=== PATIENT | female | born 1990 | race African-American/Black ===

== ENCOUNTER 2016-04-19 13:30 | Outpatient (RCR) | payer OTHER ==
[~2016-04-19 13:30] MED LIST: ACET50TA PO; CLINDAMYCIN PO; DOCU10ELUD PO; IBUP600T26 PO; IBUP800T23 PO; MOM30SS PO; NUPE1OIN2 TOP; TYLE325T5 PO; VALT500T PO; VITAPRTA PO; ZOFRAN PO
== END 2016-04-26 ==
LOC: M PT 13:30
PROVIDERS: ATTEND Family Medicine
DX: Z51.89 Encounter for other specified aftercare (principal); M54.9 Dorsalgia, unspecified

== ENCOUNTER → 2016-05-06 | Outpatient (REF) | payer OTHER, MEDICAID | LOC: M SFHCLERA 12:11 | PROVIDERS: ATTEND Family Medicine | DX: Z11.8 Encounter for screening for other infectious and parasitic diseases (principal); E66.9 Obesity, unspecified ==

== ENCOUNTER → 2016-05-09 | Outpatient (CLI) | payer OTHER | LOC: M HL 10:18 | PROVIDERS: ATTEND Family Medicine | DX: E66.9 Obesity, unspecified (principal) ==

== ENCOUNTER → 2016-05-24 | Outpatient (CLI) | payer OTHER, MEDICAID ==
--- NOTE | 2016-05-25 08:27 | REP ---
MR LUMBAR SPINE WITHOUT CONTRAST: HISTORY: Back pain. There is no disc bulge or herniation at the L1-2 through L3-4 and L5-S1 levels. The nerves exit the neural foramina without compression. A diffuse disc bulge is present at the L4-5 level. There is minimal compression of the thecal sac. The L4 nerves exit the neural foramina without compression. The conus medullaris is normal in appearance terminating at the level of the L1 vertebral body. Normal signal intensity is present in the lumbar intervertebral discs and vertebral bodies. IMPRESSION: Diffuse disc bulge at the L4-5 level with minimal thecal sac compression. Signed by Hari Ann MD 05/25/2016 08:41 A
== END ==
LOC: M RAD 14:13
PROVIDERS: ATTEND Physician Assistant
DX: S39.012A Strain of muscle, fascia and tendon of lower back, initial encounter (principal); X58.XXXA Exposure to other specified factors, initial encounter; Y92.89 Other specified places as the place of occurrence of the external cause; Y93.89 Activity, other specified; Y99.8 Other external cause status; M51.26 Other intervertebral disc displacement, lumbar region

== ENCOUNTER 2016-09-24 15:17 | Emergency (ER) | payer OTHER, MEDICAID ==
[~2016-09-24] VITALS: Ht 167.6 cm; Wt 100.4 kg
[~2016-09-24 15:17] MED LIST changes: +IBUP1TAB7 PO; -IBUP800T23 PO
[2016-09-24 15:18] VITALS: BP 157/84
[2016-09-24] MEDS ORDERED: CYCL5TAB PO (15:30)
[2016-09-24] MEDS ORDERED: NAPR500T PO (15:59)
[2016-09-24] MEDS ORDERED: ULTR50TA8 PO (15:59)
[2016-09-24] MEDS ORDERED: KETOROLAC 60 MG/2 ML VIAL (J1885) IM ONE (16:00)
== END 2016-09-24 16:07 | disposition home or self-care (01) ==
LOC: M ED 15:17
DX: M54.2 Cervicalgia (principal); G89.29 Other chronic pain; F17.210 Nicotine dependence, cigarettes, uncomplicated
CPT/HCPCS: 96372; 99282; J1885

== ENCOUNTER → 2016-12-13 | Outpatient (REF) | payer OTHER, MEDICAID ==
[~2016-12-13] MED LIST changes: +CYCL5TAB PO; +NAPR500T PO; +ULTR50TA8 PO
[2016-12-14 12:20] LABS: CONTROL LINE HCG INT CTR LINE PRESENT
[2016-12-14 12:51] LABS: ALBUMIN 3.7 GM/DL (3.2-5.2); ALBUMIN/GLOBULIN RATIO 1.03 (1.00-1.93); ALKALINE PHOSPHATASE 69 U/L (45-117); ALT/SGPT 28 U/L (12-78); ANION GAP 3 MEQ/L (8-16); AST/SGOT 8 U/L (15-37); BILIRUBIN,TOTAL 0.3 MG/DL (0.2-1.0); BLOOD UREA NITROGEN 10 MG/DL (7-18); CALCIUM LEVEL 9.1 MG/DL (8.5-10.1); CARBON DIOXIDE LEVEL 33 MEQ/L (21-32); CHLORIDE LEVEL 107 MEQ/L (98-107); CHOLESTEROL LEVEL 151 MG/DL (<200); CREATININE FOR GFR 0.62 MG/DL (0.55-1.02); GLOMERULAR FILTRATION RATE > 60.0 (>60); GLUCOSE, FASTING 78 MG/DL (70-105); SODIUM LEVEL 143 MEQ/L (136-145); TOTAL PROTEIN 7.3 GM/DL (6.4-8.2); TRIGLYCERIDES LEVEL 79 MG/DL (<150)
== END ==
LOC: M SFHCLERA 15:53
PROVIDERS: ATTEND Family Medicine
DX: R63.5 Abnormal weight gain (principal); Z11.3 Encounter for screening for infections with a predominantly sexual mode of transmission; E66.09 Other obesity due to excess calories; N91.2 Amenorrhea, unspecified

== ENCOUNTER 2017-01-04 20:02 | Emergency (ER) | payer OTHER, MEDICAID ==
[~2017-01-04] VITALS: Ht 167.6 cm; Wt 105.5 kg
[2017-01-04 21:18] LABS: BASO % 0.4 % (0.0-1.0); EOS # 0.1 10^3/uL (0.0-0.50); EOS % 1.1 % (0.0-3.0); IMMATURE GRANULOCYTE % 0.2 % (0-0); LYMPH % 24.1 % (24.0-44.0); MEAN CORPUSCULAR HEMOGLOBIN 31.4 pg (27.0-33.0); MEAN CORPUSCULAR HGB CONC 33.5 g/dl (32.0-36.5); MEAN CORPUSCULAR VOLUME 93.8 fl (80.0-96.0); MONO # 0.6 10^3/uL (0.0-0.8); MONO % 7.5 % (0.0-5.0); NEUTROPHILS # 5.6 10^3/uL (1.8-7.7); NEUTROPHILS % 66.7 % (36.0-66.0); PLATELET COUNT, AUTOMATED 268 10^3/uL (150-450); RED CELL DISTRIBUTION WIDTH 12.6 % (11.5-14.5); WHITE BLOOD COUNT 8.4 10^3/uL (4.0-10.0)
[2017-01-04] MEDS ORDERED: NS 1,000 ML IV SCH (21:24)
[2017-01-04 21:39] LABS: CONTROL LINE HCG INT CTR LINE PRESENT
[2017-01-04 21:59] LABS: ANION GAP 7 MEQ/L (8-16); BLOOD UREA NITROGEN 8 MG/DL (7-18); CALCIUM LEVEL 8.6 MG/DL (8.5-10.1); CARBON DIOXIDE LEVEL 25 MEQ/L (21-32); CHLORIDE LEVEL 108 MEQ/L (98-107); CREATININE FOR GFR 0.49 MG/DL (0.55-1.02); GLOMERULAR FILTRATION RATE > 60.0 (>60); GLUCOSE, FASTING 83 MG/DL (70-105); SODIUM LEVEL 140 MEQ/L (136-145)
[2017-01-04 22:08] LABS: POTASSIUM SERUM 4.7 MEQ/L (3.5-5.1)
[2017-01-04 22:52] VITALS: BP 141/76
--- NOTE | 2017-01-05 14:56 | REP ---
Clinical: Syncope . Comparison: None . Technique: PA and lateral. Findings: The mediastinum and cardiac silhouette are normal. The lung altamirano are clear and without acute consolidation, effusion, or pneumothorax. The skeletal structures are intact and normal. Impression: 1. No acute cardiopulmonary process. Signed by Flakito Yañez MD 01/05/2017 02:47 P
--- NOTE | 2017-01-06 07:35 | ECGEPIP ---
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
== END 2017-01-04 23:32 | disposition home or self-care (01) ==
LOC: M ED 20:02
DX: R55 Syncope and collapse (principal); Z72.0 Tobacco use

== ENCOUNTER → 2017-01-09 | Outpatient (CLI) | payer OTHER, MEDICAID ==
--- NOTE | 2017-01-10 01:18 | REP ---
Clinical: Pain . Technique: AP, lateral, bilateral oblique views right ankle . Findings: Mild swelling is suggested. No acute fracture or dislocation. Skeletal structures and joint spaces are intact and normal. Ankle mortise appears stable. No subcutaneous emphysema or radiodense foreign body. Impression: Mild swelling. No acute fracture or dislocation. Signed by Flakito Yañez MD 01/10/2017 01:11 A
== END ==
LOC: M RAD 18:07
PROVIDERS: ATTEND Physician Assistant Medical
DX: M25.571 Pain in right ankle and joints of right foot (principal)

== ENCOUNTER 2017-08-27 18:22 | Emergency (ER) | payer OTHER, MEDICAID ==
[2017-08-27 19:08] LABS: BASO % 0.3 % (0.0-1.0); EOS # 0.1 10^3/uL (0.0-0.50); EOS % 1.7 % (0.0-3.0); HEMATOCRIT 37.2 % (36.0-47.0); HEMOGLOBIN 12.4 g/dl (12.0-15.5); IMMATURE GRANULOCYTE % 0.2 % (0-3.0); LYMPH # 2.3 10^3/uL (1.5-6.5); LYMPH % 34.9 % (24.0-44.0); MEAN CORPUSCULAR HEMOGLOBIN 30.7 pg (27.0-33.0); MEAN CORPUSCULAR HGB CONC 33.3 g/dl (32.0-36.5); MEAN CORPUSCULAR VOLUME 92.1 fl (80.0-96.0); MONO # 0.4 10^3/uL (0.0-0.8); MONO % 6.8 % (0.0-5.0); NEUTROPHILS # 3.7 10^3/uL (1.8-7.7); NEUTROPHILS % 56.1 % (36.0-66.0); PLATELET COUNT, AUTOMATED 272 10^3/uL (150-450); RED BLOOD COUNT 4.04 10^6/uL (4.00-5.40); RED CELL DISTRIBUTION WIDTH 12.3 % (11.5-14.5); WHITE BLOOD COUNT 6.5 10^3/uL (4.0-10.0)
[2017-08-27 19:21] LABS: CONTROL LINE HCG INT CTR LINE PRESENT; HCG, SERUM QUALITATIVE NEGATIVE (NEGATIVE)
== END 2017-08-27 20:07 | disposition home or self-care (01) ==
LOC: M ED 18:22
DX: N92.0 Excessive and frequent menstruation with regular cycle (principal); Z87.42 Personal history of other diseases of the female genital tract; F17.210 Nicotine dependence, cigarettes, uncomplicated; Z91.010 Allergy to peanuts
CPT/HCPCS: 84703

== ENCOUNTER → 2017-12-15 | Outpatient (REF) | payer OTHER, MEDICAID ==
[2017-12-15 15:35] LABS: CHLAMYDIA DNA AMPLIFICATION NEGATIVE (NEGATIVE); GC DNA AMPLIFICATION NEGATIVE (NEGATIVE)
== END ==
LOC: M LAB REF 13:45
DX: Z11.3 Encounter for screening for infections with a predominantly sexual mode of transmission (principal)

== ENCOUNTER → 2017-12-15 | Outpatient (REF) | payer MEDICAID, OTHER | LOC: M LAB REF 14:07 | DX: Z12.4 Encounter for screening for malignant neoplasm of cervix (principal) | CPT/HCPCS: 88142 ==

== ENCOUNTER 2017-12-16 09:00 | Emergency (ER) | payer MEDICAID, OTHER ==
[2017-12-16] MEDS: KETOROLAC TROMETHAMINE 10 MG TAB PO ×2 (09:26)
[2017-12-16] MEDS: BACLOFEN 10 MG TAB PO ×2 (09:26)
== END 2017-12-16 10:17 | disposition home or self-care (01) ==
LOC: M ED 09:00
DX: S16.1XXA Strain of muscle, fascia and tendon at neck level, initial encounter (principal); X58.XXXA Exposure to other specified factors, initial encounter; Y92.89 Other specified places as the place of occurrence of the external cause; Z91.010 Allergy to peanuts; F17.210 Nicotine dependence, cigarettes, uncomplicated
CPT/HCPCS: 99282

== ENCOUNTER → 2017-12-18 | Outpatient (CLI) | payer MEDICAID, OTHER | LOC: M RAD 12:02 | DX: D27.1 Benign neoplasm of left ovary (principal) | CPT/HCPCS: 76856 ==

== ENCOUNTER → 2018-06-21 | Outpatient (CLI) | payer OTHER, MEDICAID ==
[~2018-06-21] MED LIST changes: +BACL10TA2 PO; +DICL75TA PO; +NAPR-50 PO; -NAPR500T PO; +NEXP1IMP SC
[2018-06-21 15:17] LABS: CHLAMYDIA DNA AMPLIFICATION POSITIVE (NEGATIVE); GC DNA AMPLIFICATION NEGATIVE (NEGATIVE)
[2018-06-22 10:18] LABS: HEPATITIS A ANTIBODY IGM NEGATIVE (NEGATIVE); HEPATITIS B CORE ANTIBODY IGM NEGATIVE (NEGATIVE); HEPATITIS B SURFACE ANTIGEN NEGATIVE (NEGATIVE); HEPATITIS C VIRUS ABY INDEX 0.1 INDEX (<0.8); HIV 1&2 SCREEN CENTAUR NEGATIVE (NEGATIVE)
== END ==
LOC: M SMT 10:02
PROVIDERS: ATTEND Advanced Practice Midwife
DX: Z11.3 Encounter for screening for infections with a predominantly sexual mode of transmission (principal)

== ENCOUNTER 2018-06-25 16:11 | Emergency (ER) | payer MEDICAID, OTHER ==
[~2018-06-25] VITALS: Ht 167.6 cm; Wt 107.9 kg
[~2018-06-25 16:11] MED LIST changes: -ACET50TA PO; -DOCU10ELUD PO; +DOCU5LIQ PO; +MAPA500T17 PO; -NAPR-50 PO; +NAPR-837 PO; -NEXP1IMP SC
[2018-06-25] MEDS ORDERED: NEXP1IMP SC (16:23)
[2018-06-25 19:10] LABS: BASO % 0.6 % (0.0-1.0); EOS # 0.1 10^3/uL (0.0-0.50); EOS % 1.5 % (0.0-3.0); HEMATOCRIT 41.2 % (36.0-47.0); HEMOGLOBIN 13.5 g/dl (12.0-15.5); LYMPH # 2.9 10^3/uL (1.5-6.5); LYMPH % 40.7 % (24.0-44.0); MEAN CORPUSCULAR HEMOGLOBIN 30.5 pg (27.0-33.0); MEAN CORPUSCULAR HGB CONC 32.8 g/dl (32.0-36.5); MONO # 0.5 10^3/uL (0.0-0.8); MONO % 6.7 % (0.0-5.0); NEUTROPHILS # 3.6 10^3/uL (1.8-7.7); NEUTROPHILS % 50.2 % (36.0-66.0); PLATELET COUNT, AUTOMATED 293 10^3/uL (150-450); RED BLOOD COUNT 4.43 10^6/uL (4.00-5.40); WHITE BLOOD COUNT 7.2 10^3/uL (4.0-10.0)
[2018-06-25 19:31] LABS: BLOOD UREA NITROGEN 10 MG/DL (7-18); CALCIUM LEVEL 8.9 MG/DL (8.5-10.1); CARBON DIOXIDE LEVEL 28 MEQ/L (21-32); CHLORIDE LEVEL 106 MEQ/L (98-107); CREATININE FOR GFR 0.62 MG/DL (0.55-1.30); GLOMERULAR FILTRATION RATE > 60.0 (>60); GLUCOSE, FASTING 73 MG/DL (70-100); POTASSIUM SERUM 3.9 MEQ/L (3.5-5.1); SODIUM LEVEL 139 MEQ/L (136-145)
--- NOTE | 2018-06-25 20:12 | REP ---
Clinical: Right pelvic pain . Technique: Transabdominal pelvic ultrasound followed by transvaginal examination for better evaluation of the endometrium and adnexa with color Doppler evaluation of the ovaries. Findings: Bladder is unremarkable and measures 7.2 x 4.0 x 4.7 cm . Normal anteverted uterus measures 8.0 x 4.1 x 4.8 cm . The endometrial complex measures 7.1 mm thickness. No discrete uterine or endometrial abnormalities are appreciated. Bilateral ovaries are normal in appearance and vascularity without evidence for torsion. Right ovary measures 4.5 x 2.1 x 3.4 cm ; R I = 0.54 . Left ovary measures 4.0 x 2.1 x 2.7 cm ; R I = 0.68 . Moderate amount of free fluid is nonspecific and likely physiologic . Impression: 1. Essentially normal pelvic ultrasound Electronically Signed by Flakito Yañez MD 06/25/2018 08:03 P
[2018-06-25 20:23] VITALS: BP 124/83
== END 2018-06-25 20:43 | disposition home or self-care (01) ==
LOC: M ED 16:11
DX: R10.2 Pelvic and perineal pain (principal); Z79.3 Long term (current) use of hormonal contraceptives; Z72.0 Tobacco use; Z91.010 Allergy to peanuts

== ENCOUNTER → 2018-06-30 | Outpatient (REF) | payer OTHER ==
[~2018-06-30] MED LIST changes: +NEXP1IMP SC
[2018-06-30 16:01] LABS: INFLUENZA A AMPLIFICATION NEGATIVE (NEGATIVE); INFLUENZA B AMPLIFICATION NEGATIVE (NEGATIVE)
== END ==
LOC: M LAB REF 09:27
PROVIDERS: ATTEND Physician Assistant
DX: J11.1 Influenza due to unidentified influenza virus with other respiratory manifestations (principal)

== ENCOUNTER → 2018-07-20 | Outpatient (REF) | payer OTHER ==
[2018-07-20 16:16] LABS: CHLAMYDIA DNA AMPLIFICATION NEGATIVE (NEGATIVE); GC DNA AMPLIFICATION NEGATIVE (NEGATIVE)
== END ==
LOC: M LAB REF 13:22
PROVIDERS: ATTEND Advanced Practice Midwife
DX: Z11.3 Encounter for screening for infections with a predominantly sexual mode of transmission (principal)

== ENCOUNTER → 2019-03-13 | Outpatient (CLI) | payer OTHER ==
[2019-03-13 13:51] LABS: HEMATOCRIT 40.9 % (36.0-47.0); HEMOGLOBIN 13.1 g/dl (12.0-15.5); MEAN CORPUSCULAR HEMOGLOBIN 30.3 pg (27.0-33.0); MEAN CORPUSCULAR VOLUME 94.5 fl (80.0-96.0); PLATELET COUNT, AUTOMATED 273 10^3/uL (150-450); RED BLOOD COUNT 4.33 10^6/uL (4.00-5.40); WHITE BLOOD COUNT 7.3 10^3/uL (4.0-10.0)
[2019-03-13 14:16] LABS: HEMOGLOBIN A1c 5.5 %
[2019-03-13 14:28] LABS: ALBUMIN 3.5 GM/DL (3.2-5.2); ALT/SGPT 22 U/L (12-78); BILIRUBIN,TOTAL 0.2 MG/DL (0.2-1.0); BLOOD UREA NITROGEN 7 MG/DL (7-18); CALCIUM LEVEL 8.6 MG/DL (8.5-10.1); CARBON DIOXIDE LEVEL 28 MEQ/L (21-32); CHLORIDE LEVEL 109 MEQ/L (98-107); CHOLESTEROL LEVEL 144 MG/DL (<200); CHOLESTEROL RISK RATIO 3.348 (<5); CREATININE FOR GFR 0.61 MG/DL (0.55-1.30); GLOMERULAR FILTRATION RATE > 60.0 (>60); GLUCOSE, FASTING 76 MG/DL (70-100); HDL CHOLESTEROL 43 MG/DL (>40); LDL CHOLESTEROL 92 MG/DL (<100); NON-HDL-C 101 MG/DL; POTASSIUM SERUM 4.1 MEQ/L (3.5-5.1); SODIUM LEVEL 141 MEQ/L (136-145); THYROID STIMULATING HORMONE 0.876 uIU/ML (0.358-3.740); TOTAL PROTEIN 7.2 GM/DL (6.4-8.2); TRIGLYCERIDES LEVEL 46 MG/DL (<150)
[2019-03-13 14:29] LABS: TOTAL 25(OH) VITAMIN D 18.4 NG/ML (30.0-100.0)
== END ==
LOC: M LAB 13:01
PROVIDERS: ATTEND Internal Medicine
DX: M25.569 Pain in unspecified knee (principal); M72.2 Plantar fascial fibromatosis; E66.9 Obesity, unspecified

== ENCOUNTER 2019-03-25 09:45 | Outpatient (RCR) | payer OTHER | END 2019-03-26 | LOC: M PT 09:45 | PROVIDERS: ATTEND Internal Medicine | DX: Z51.89 Encounter for other specified aftercare (principal); M25.561 Pain in right knee; M25.562 Pain in left knee ==

== ENCOUNTER 2019-03-29 11:13 | Outpatient (RCR) | payer OTHER | END 2019-04-26 | LOC: M PT 11:13 | PROVIDERS: ATTEND Internal Medicine | DX: Z51.89 Encounter for other specified aftercare (principal); M25.561 Pain in right knee; M25.562 Pain in left knee ==

== ENCOUNTER → 2020-04-17 | Outpatient (REF) | payer OTHER ==
[2020-04-17 15:51] LABS: CHLAMYDIA DNA AMPLIFICATION NEGATIVE (NEGATIVE); GC DNA AMPLIFICATION NEGATIVE (NEGATIVE)
== END ==
LOC: M SFHCWAGY 12:50
PROVIDERS: ATTEND Specialist
DX: Z20.2 Contact with and (suspected) exposure to infections with a predominantly sexual mode of transmission (principal)

== ENCOUNTER → 2020-07-14 | Outpatient (CLI) | payer OTHER | LOC: M LABSMTC 09:41 | PROVIDERS: ATTEND Anesthesiology | DX: Z01.812 Encounter for preprocedural laboratory examination (principal); Z20.822 Contact with and (suspected) exposure to COVID-19 ==

== ENCOUNTER 2020-07-17 09:26 | Day surgery (SDC) | payer OTHER ==
[~2020-07-17] VITALS: Ht 167.6 cm; Wt 96.6 kg
[~2020-07-17 09:26] MED LIST changes: +LR 1,000 ML IV ONE
[2020-07-17 10:05] LABS: HEMATOCRIT 37.2 % (36.0-47.0); MEAN CORPUSCULAR HEMOGLOBIN 31.2 pg (27.0-33.0); MEAN CORPUSCULAR HGB CONC 32.3 g/dl (32.0-36.5); MEAN CORPUSCULAR VOLUME 96.6 fl (80.0-96.0); PLATELET COUNT, AUTOMATED 256 10^3/uL (150-450); RED BLOOD COUNT 3.85 10^6/uL (4.00-5.40); WHITE BLOOD COUNT 7.4 10^3/uL (4.0-10.0)
[2020-07-17] MEDS ORDERED: fentaNYL 100 MCG/2 ML INJECTION (J3010) As Ordered ONE (11:48)
[2020-07-17] MEDS ORDERED: ONDANSETRON 4MG/2ML VIAL As Ordered ONE ×2 (11:49→11:54)
[2020-07-17] MEDS ORDERED: MIDAZOLAM INJ 2MG/2ML VIAL (J2250 PER 1MG) As Ordered ONE (11:49)
[2020-07-17] MEDS ORDERED: dexameTHASONE 4 MG/ML 1ML VIAL (J1100 PER 1MG) As Ordered ONE (11:49)
[2020-07-17] MEDS ORDERED: LIDOCAINE 2% 100MG/5ML SDV (FOR ANES.) As Ordered ONE (11:52)
[2020-07-17] MEDS ORDERED: propofoL 200 MG/20 ML VIAL As Ordered ONE (11:53)
[2020-07-17] MEDS ORDERED: KETOROLAC 60MG 2ML VIAL As Ordered ONE (12:35)
--- NOTE | 2020-07-17 12:42 | ROOPDOC ---
[facility] Report Of Operation Report of Operation DATE OF PROCEDURE: 07/17/20 PREPROCEDURE DIAGNOSES: embryonic demise, 7-8 weeks POSTPROCEDURE DIAGNOSES: Same. PROCEDURE: D+E+C. SURGEON: Jael Smith MD ANESTHESIA: Gen. via LMA. ESTIMATED BLOOD LOSS: Approximately 20 mL. COMPLICATIONS: None. FINDINGS: Moderate amount of products of conception. PROCEDURE NOTE: Patient was taken to the operating room where LMA anesthesia was induced. She was prepped draped sterile fashion in dorsal lithotomy position. The bladder was emptied with a catheter. A Speculum was placed in the vagina. The anterior lip of the cervix was grasped with tenaculum. Cervix dilated with tapered dilators. A 9 mm suction curette was placed through the internal os. The Suction device was activated and the curette was gently rotated until products of conception were noted coming through the suction tubing. Sharp curettage was performed. Good hemostasis was noted. All instruments removed. Sponges and instr ument counts were correct. JAEL SMITH MD Jul 17, 2020 12:42
[2020-07-17] MEDS ORDERED: LR 1,000 ML IV SCH ×2 (13:00→13:05)
[2020-07-17] MEDS ORDERED: ONDANSETRON 4MG/2ML VIAL IV PRN (13:00)
[2020-07-17] MEDS ORDERED: PERCOCET 5MG/325MG TAB PO PRN (13:00)
[2020-07-17] MEDS ORDERED: METOCLOPRAMIDE INJ 10MG/2ML VIAL (J2765 PER 1) IV PRN (13:00)
[2020-07-17] MEDS ORDERED: fentaNYL 100 MCG/2 ML INJECTION (J3010) IV PRN (13:00)
[2020-07-17] MEDS ORDERED: ACETAMINOPHEN 500 MG TAB PO ONE (13:05)
[2020-07-17] MEDS ORDERED: DOXYCYCLINE HYCLATE 100MG TABLET PO ONE (13:05)
[2020-07-17 14:25] VITALS: BP 129/74
== END 2020-07-17 14:25 | disposition home or self-care (01) ==
LOC: M SDC 09:26
PROVIDERS: ATTEND Specialist
DX: O73.1 Retained portions of placenta and membranes, without hemorrhage (principal); R06.83 Snoring; F17.200 Nicotine dependence, unspecified, uncomplicated; Z91.010 Allergy to peanuts
CPT/HCPCS: 36415; 59812; 85027; 88305; J1100; J1885; J2250; J2405; J3010

== ENCOUNTER → 2020-11-23 | Outpatient (CLI) | payer OTHER ==
[~2020-11-23] MED LIST changes: -LR 1,000 ML IV ONE
[2020-11-23 14:30] LABS: HEMATOCRIT 36.1 % (36.0-47.0); HEMOGLOBIN 12.1 g/dl (12.0-15.5); MEAN CORPUSCULAR HEMOGLOBIN 31.4 pg (27.0-33.0); MEAN CORPUSCULAR HGB CONC 33.5 g/dl (32.0-36.5); MEAN CORPUSCULAR VOLUME 93.8 fl (80.0-96.0); PLATELET COUNT, AUTOMATED 266 10^3/uL (150-450); RED BLOOD COUNT 3.85 10^6/uL (4.00-5.40); WHITE BLOOD COUNT 6.7 10^3/uL (4.0-10.0)
[2020-11-23 15:47] LABS: HEPATITIS C VIRUS ABY INDEX < 0.0 INDEX (<0.8); HIV 1&2 SCREEN CENTAUR NEGATIVE (NEGATIVE)
[2020-11-23 16:02] LABS: GC DNA AMPLIFICATION NEGATIVE (NEGATIVE)
== END ==
LOC: M PLALAB 11:20
PROVIDERS: ATTEND Specialist
DX: Z34.81 Encounter for supervision of other normal pregnancy, first trimester (principal)

== ENCOUNTER → 2020-12-28 | Outpatient (REF) | payer OTHER ==
[2020-12-28 22:20] LABS: RSV AMPLIFICATION NEGATIVE (NEGATIVE)
== END ==
LOC: M LAB REF 21:24
PROVIDERS: ATTEND Physician Assistant Medical
DX: R50.9 Fever, unspecified (principal); Z20.822 Contact with and (suspected) exposure to COVID-19

== ENCOUNTER → 2021-01-06 | Outpatient (CLI) | payer OTHER ==
--- NOTE | 2021-01-06 10:22 | REP ---
INDICATION: ANATOMY COMPARISON: None. TECHNIQUE: Transabdominal obstetrical ultrasound with color Doppler evaluation. FINDINGS: Examination demonstrates a single live intrauterine in cephalic presentation. motion is identified by technologist. Placenta is noted posterior and grade 0 without evidence for placenta previa or abruption. Amniotic fluid volume is normal. Cervix measures 4.0 cm in length and appears closed.. Selected gestational age: 20 weeks 2 days with BONIFACIO 05/24/2021. Gestational age by current measurements 20 weeks 2 days with BONIFACIO 05/24/2021. FHR equals 147 beats per minute. BPD: 4.6 cm at 20 weeks 0 days HC: 17.5 cm at 20 weeks 0 days AC: 14.5 cm at 19 weeks 6 days FL: 3.4 cm at 20 weeks 6 days HL: 3.3 cm at 20 weeks 6 days HC/AC: 1.20 Estimated weight 342 grams (42ndpercentile). Anatomical assessment demonstrates normal structures including cranium, choroid plexus, cavum, cerebellum/posterior fossa, facial features, lungs, four-chamber heart/ventricular outflow tracts, diaphragm, stomach, cord insertion/three-vessel cord, kidneys/bladder, spine, and extremities. Incidental echogenic focus in the left cardiac ventricle likely prominent chordae tendineae. IMPRESSION: Single live intrauterine in cephalic presentation demonstrating appropriate estimated weight. Anatomical assessment is essentially complete and normal as described above. <Electronically signed by Flakito Yañez > 01/06/21 [id number]
== END ==
LOC: M WHC 09:14
PROVIDERS: ATTEND Specialist
DX: Z34.82 Encounter for supervision of other normal pregnancy, second trimester (principal); Z3A.20 20 weeks gestation of pregnancy

== ENCOUNTER → 2021-02-16 | Outpatient (CLI) | payer OTHER ==
[2021-02-16 13:49] LABS: HEMATOCRIT 34.4 % (36.0-47.0); HEMOGLOBIN 10.9 g/dl (12.0-15.5); MEAN CORPUSCULAR HEMOGLOBIN 30.3 pg (27.0-33.0); MEAN CORPUSCULAR HGB CONC 31.7 g/dl (32.0-36.5); MEAN CORPUSCULAR VOLUME 95.6 fl (80.0-96.0); PLATELET COUNT, AUTOMATED 281 10^3/uL (150-450); WHITE BLOOD COUNT 7.2 10^3/uL (4.0-10.0)
[2021-02-16 15:26] LABS: GC DNA AMPLIFICATION NEGATIVE (NEGATIVE)
== END ==
LOC: M PLALAB 09:41
PROVIDERS: ATTEND Specialist
DX: Z34.82 Encounter for supervision of other normal pregnancy, second trimester (principal)

== ENCOUNTER → 2021-04-23 | Outpatient (REF) | payer OTHER | LOC: M SFHCWAGY 10:05 | PROVIDERS: ATTEND Specialist | DX: Z36.89 Encounter for other specified antenatal screening (principal) ==

== ENCOUNTER 2021-05-26 06:20 | Inpatient (IN) | payer OTHER ==
[~2021-05-26] VITALS: Ht 167.6 cm; Wt 115.7 kg
[2021-05-26] VITALS (8 sets, daily range): BP systolic 116–135; BP diastolic 67–84
[2021-05-26] MEDS ORDERED: OXYTOCIN DRIP 30 UNITS in IV 1 EA IV PRN ×4 (07:10)
[2021-05-26] MEDS ORDERED: METHYLERGONOVINE MALEATE 0.2 MG/ML VIAL (J2210) IM PRN (07:10)
[2021-05-26] MEDS ORDERED: LACTATED RINGER'S 1000 ML IV PRN (07:10)
[2021-05-26] MEDS ORDERED: CARBOPROST TROMETHAMINE 250 MCG/ML AMP IM PRN (07:10)
[2021-05-26] MEDS ORDERED: TRANEXAMIC ACID INJection 1,000 MG in NS 100 ML IV PRN (07:10)
[2021-05-26] MEDS ORDERED: PEPC40TA12 PO (07:25)
[2021-05-26] MEDS ORDERED: VALT1TAB PO (07:25)
[2021-05-26] MEDS ORDERED: HOME MED LIST COMPLETE! XX SCH (07:30)
[2021-05-26 08:07] LABS: HEMATOCRIT 36.8 % (36.0-47.0); HEMOGLOBIN 12.3 g/dl (12.0-15.5); MEAN CORPUSCULAR HGB CONC 33.4 g/dl (32.0-36.5); MEAN CORPUSCULAR VOLUME 89.8 fl (80.0-96.0); PLATELET COUNT, AUTOMATED 273 10^3/uL (150-450)
[2021-05-26] MEDS ORDERED: OXYTOCIN DRIP 30 UNITS in IV 1 EA IV SCH (11:05)
[2021-05-26] MEDS ORDERED: LR 1,000 ML IV SCH (11:05)
[2021-05-26] MEDS ORDERED: METHYLERGONOVINE MALEATE 0.2 MG TAB PO PRN (14:25)
[2021-05-26] MEDS ORDERED: IBUPROFEN 800 MG TAB PO PRN (14:25)
[2021-05-26] MEDS ORDERED: ACETAMINOPHEN TAB 650MG DOSE (2X325MG) PO PRN (14:25)
[2021-05-26] MEDS ORDERED: DOCUSATE SODIUM 100MG CAPSULE PO PRN (14:25)
[2021-05-26] MEDS ORDERED: ACETAMINOPHEN 500 MG TAB PO PRN (14:25)
[2021-05-26] MEDS ORDERED: DIBUCAINE 1% OINTMENT 30GM TOP PRN (14:25)
[2021-05-26] MEDS ORDERED: IBUPROFEN 600MG TAB PO PRN (14:25)
[2021-05-27 06:11] VITALS: BP 128/68
[2021-05-27] MEDS: MEASLES,MUMPS,RUBELLA VACCINE INJ (MMR-II) (90707) SC SCH ×2 (07:19→08:53)
[2021-05-27] MEDS: RHOGAM 300 MCG (1500 IU) INJ (J2790) IM SCH ×2 (07:19→08:53)
[2021-05-27] MEDS ORDERED: PRENATAL VITAMINS CHEWABLE TABLET PO SCH (09:00)
== END 2021-05-27 15:05 | disposition home or self-care (01) | DRG 560 ==
LOC: M LDO 06:20 → M LDI 07:08 → M OBS 15:10
PROVIDERS: ADMIT Obstetrics & Gynecology; ATTEND Advanced Practice Midwife
PROC: 10E0XZZ Delivery of Products of Conception, External Approach (ICD-10-PCS; principal; 2021-05-26)
DX: O98.32 Other infections with a predominantly sexual mode of transmission complicating childbirth (principal); O48.0 Post-term pregnancy; E66.9 Obesity, unspecified; O99.214 Obesity complicating childbirth; Z3A.40 40 weeks gestation of pregnancy; A60.09 Herpesviral infection of other urogenital tract; Z91.010 Allergy to peanuts; Z37.0 Single live birth